=== PATIENT | male | born 1995 | race African-American/Black ===

== ENCOUNTER 2017-10-24 19:19 | Emergency (ER) | payer OTHER | END 2017-10-24 23:27 | disposition home or self-care (01) | LOC: M ED 19:19 | DX: J06.9 Acute upper respiratory infection, unspecified (principal); F17.200 Nicotine dependence, unspecified, uncomplicated | CPT/HCPCS: 71046 ==

== ENCOUNTER 2017-11-01 12:33 | Emergency (ER) | payer OTHER ==
[2017-11-01 13:04] LABS: BASO % 0.5 % (0.0-1.0); EOS % 0.3 % (0.0-3.0); HEMATOCRIT 43.4 % (42.0-52.0); HEMOGLOBIN 14.3 g/dl (14.0-18.0); IMMATURE GRANULOCYTE # 0.1 10^3/uL (0-0); IMMATURE GRANULOCYTE % 0.9 % (0-0); LYMPH # 1.9 10^3/uL (1.5-6.5); LYMPH % 24.7 % (24.0-44.0); MEAN CORPUSCULAR HEMOGLOBIN 31.6 pg (27.0-33.0); MEAN CORPUSCULAR HGB CONC 32.9 g/dl (32.0-36.5); MEAN CORPUSCULAR VOLUME 95.8 fl (80.0-96.0); MONO # 0.6 10^3/uL (0.0-0.8); MONO % 8.2 % (0.0-5.0); NEUTROPHILS # 4.9 10^3/uL (1.8-7.7); NEUTROPHILS % 65.4 % (36.0-66.0); PLATELET COUNT, AUTOMATED 260 10^3/uL (150-450); RED BLOOD COUNT 4.53 10^6/uL (4.30-6.10); RED CELL DISTRIBUTION WIDTH 11.2 % (11.5-14.5); WHITE BLOOD COUNT 7.5 10^3/uL (4.0-10.0)
[2017-11-01] MEDS: MORPHINE 2 MG/ML 1ML SYRINGE IV ×3 (13:10→15:04)
[2017-11-01] MEDS: ONDANSETRON 4MG/2ML VIAL (J2405) IV (13:10)
[2017-11-01] MEDS: NS 1,000 ML IV (13:10)
[2017-11-01 13:21] LABS: ALBUMIN/GLOBULIN RATIO 1.25 (1.00-1.93); ALKALINE PHOSPHATASE 79 U/L (45-117); ALT/SGPT 45 U/L (12-78); ANION GAP 5 MEQ/L (8-16); AST/SGOT 63 U/L (7-37); BILIRUBIN,DIRECT 0.1 MG/DL (0.0-0.2); BILIRUBIN,TOTAL 0.5 MG/DL (0.2-1.0); BLOOD UREA NITROGEN 15 MG/DL (7-18); CALCIUM LEVEL 9.1 MG/DL (8.5-10.1); CARBON DIOXIDE LEVEL 29 MEQ/L (21-32); CHLORIDE LEVEL 107 MEQ/L (98-107); CREATININE FOR GFR 1.18 MG/DL (0.70-1.30); GLUCOSE, FASTING 91 MG/DL (70-105); POTASSIUM SERUM 4.3 MEQ/L (3.5-5.1); SODIUM LEVEL 141 MEQ/L (136-145); TOTAL PROTEIN 7.2 GM/DL (6.4-8.2)
[2017-11-01] MEDS ORDERED: ISOVUE-370 76% 100ML VIAL (Q9967) As Ordered (14:04)
[2017-11-01] MEDS: PERCOCET 5MG/325MG TAB PO (16:19)
== END 2017-11-01 16:41 | disposition home or self-care (01) ==
LOC: M ED 12:33
DX: Z04.1 Encounter for examination and observation following transport accident (principal); S00.531A Contusion of lip, initial encounter; W22.11XA Striking against or struck by driver side automobile airbag, initial encounter; V49.40XA Driver injured in collision with unspecified motor vehicles in traffic accident, initial encounter; Y92.410 Unspecified street and highway as the place of occurrence of the external cause; Y93.89 Activity, other specified; Y99.8 Other external cause status; H11.32 Conjunctival hemorrhage, left eye; F17.210 Nicotine dependence, cigarettes, uncomplicated; Z79.51 Long term (current) use of inhaled steroids; Z79.899 Other long term (current) drug therapy
CPT/HCPCS: J2405

== ENCOUNTER 2017-11-11 01:15 | Emergency (ER) | payer OTHER ==
[2017-11-11] MEDS: NS 500 ML IV (02:30)
[2017-11-11] MEDS: MORPHINE 2 MG/ML 1ML SYRINGE IV (02:32)
[2017-11-11 02:35] LABS: HEMATOCRIT 42.1 % (42.0-52.0); HEMOGLOBIN 13.9 g/dl (14.0-18.0); MEAN CORPUSCULAR HEMOGLOBIN 31.7 pg (27.0-33.0); MEAN CORPUSCULAR VOLUME 95.9 fl (80.0-96.0); PLATELET COUNT, AUTOMATED 253 10^3/uL (150-450); RED BLOOD COUNT 4.39 10^6/uL (4.30-6.10); RED CELL DISTRIBUTION WIDTH 11.2 % (11.5-14.5); WHITE BLOOD COUNT 7.3 10^3/uL (4.0-10.0)
[2017-11-11 02:38] LABS: ADD MANUAL DIFFER YES; DIFF SLIDE NUMBER 85; POSITIVE DIFF POS FLAG; POSITIVE MORPH POS FLAG
[2017-11-11 02:42] LABS: APPEARANCE, URINE CLEAR (CLEAR); BACTERIA, URINE AUTO NEGATIVE (NEGATIVE); BILIRUBIN, URINE AUTO NEGATIVE (NEGATIVE); BLOOD, URINE BLOOD NEGATIVE (NEGATIVE); COLOR, URINE AMBER (YELLOW); GLUCOSE, URINE (UA) AUTO NEGATIVE (NEGATIVE); KETONE, URINE AUTO 1+ mg/dL (NEGATIVE); LEUKOCYTE ESTERASE, URINE AUTO NEGATIVE (NEGATIVE); NITRITE, URINE AUTO POSITIVE (NEGATIVE); PROTEIN, URINE AUTO NEGATIVE (NEGATIVE); RBC, URINE AUTO 5 /HPF (0-3); SPECIFIC GRAVITY URINE AUTO 1.024 (1.002-1.035); SQUAMOUS EPITHELIAL CELL UR AU 0 /HPF (0-6); WBC, URINE AUTO 3 /HPF (0-3)
[2017-11-11 02:55] LABS: BANDS 4 % (< 11); LYMPHOCYTES 12 % (16-52); MONOCYTES 8 % (0-8); NEUTROPHILS 76 % (35-75); PLATELET ESTIMATE NORMAL (NORMAL)
[2017-11-11 03:07] LABS: ALBUMIN 4.3 GM/DL (3.2-5.2); ALBUMIN/GLOBULIN RATIO 1.48 (1.00-1.93); ALKALINE PHOSPHATASE 65 U/L (45-117); ALT/SGPT 43 U/L (12-78); AMYLASE 79 U/L (25-115); ANION GAP 5 MEQ/L (8-16); AST/SGOT 29 U/L (7-37); BILIRUBIN,DIRECT 0.3 MG/DL (0.0-0.2); BLOOD UREA NITROGEN 18 MG/DL (7-18); CALCIUM LEVEL 8.7 MG/DL (8.5-10.1); CARBON DIOXIDE LEVEL 29 MEQ/L (21-32); CHLORIDE LEVEL 103 MEQ/L (98-107); CREATININE FOR GFR 1.11 MG/DL (0.70-1.30); GLUCOSE, FASTING 83 MG/DL (70-105); LIPASE 151 U/L (73-393); POTASSIUM SERUM 3.9 MEQ/L (3.5-5.1); SODIUM LEVEL 137 MEQ/L (136-145); TOTAL PROTEIN 7.2 GM/DL (6.4-8.2)
[2017-11-11] MEDS ORDERED: ISOVUE-370 76% 100ML VIAL (Q9967) As Ordered (03:10)
== END 2017-11-11 05:43 | disposition home or self-care (01) ==
LOC: M ED 01:15
DX: S30.1XXD Contusion of abdominal wall, subsequent encounter (principal); V46 Car occupant injured in collision with other nonmotor vehicle; Y92.410 Unspecified street and highway as the place of occurrence of the external cause; F17.210 Nicotine dependence, cigarettes, uncomplicated
CPT/HCPCS: Q9967

== ENCOUNTER 2017-11-16 15:40 | Emergency (ER) | payer OTHER ==
[2017-11-17 11:35] LABS: BEDSIDE GLUCOSE 85 MG/DL (70-105)
[2017-11-17 11:35] LABS: BEDSIDE GLUCOSE 73 MG/DL (70-105)
== END 2017-11-16 21:48 | disposition home or self-care (01) ==
LOC: M ED 15:40
DX: E16.2 Hypoglycemia, unspecified (principal); F17.200 Nicotine dependence, unspecified, uncomplicated
CPT/HCPCS: 99284